=== PATIENT | male | born 1950 | race Caucasian/White ===

== ENCOUNTER → 2018-04-02 | Outpatient (CLI) | payer OTHER ==
[~2018-04-02] MED LIST: ALL300 PO; ASPI81TA28 PO; CALC500C70 PO; HYDR0.5T PO; PRD/25 PO
== END | disposition home or self-care (01) ==
LOC: C.LAB 08:14
PROVIDERS: ATTEND Internal Medicine Pulmonary Disease
DX: D86.9 Sarcoidosis, unspecified (principal); E83.52 Hypercalcemia; R97.20 Elevated prostate specific antigen [PSA]; C61 Malignant neoplasm of prostate; Q61.9 Cystic kidney disease, unspecified